=== PATIENT | female | born 1965 | race Hispanic/Latino ===

== ENCOUNTER 2018-03-22 12:18 | Outpatient (CLI) | payer OTHER ==
[~2018-03-22 12:18] MED LIST: Iopamidol 370 76% 100 ML VIAL ONE
--- NOTE | 2018-03-22 13:46 | CT ---
CT NECK SOFT TISSUES WITH CONTRAST: DATE: 03/22/2018. HISTORY: A 52-year-old female with left neck mass, R22.1. COMPARISON: None. FINDINGS: Corresponding to the externally placed marker for palpable lump, there is an approximately 2.3 x 1.8 x 2.2 cm non-necrotic, smoothly well-circumscribed, non-lobulated, homogeneously moderately enhancing soft tissue density mass, which indents the tail of the superficial lobe of the left parotid gland. This is either a tumor arising from the parotid tail or represents an enlarged level II lymph node. The former is favored. Inferior to that, there is enlargement of several left cervical lymph nodes. For example, immediatel y inferior to this mass, there is a similar-appearing soft tissue density mass measuring approximatel y 2 x 1.1 x 0.9 cm which abuts the lateral surface of the left sternocleidomastoid muscle. Inferior and medial to that, there is a vertical array of abnormally enlarged lymph nodes deep to the left sternocleidomastoid muscle, including 1.4 x 1 x 1.2 cm left level IIB or III node; 1.3 x 1 x 1. 2 cm left level IIIB lymph node; 2 x 1.4 x 1.7 cm left level IV supraclavicular lymph node; Medial t o that, a 1.5 x 1 x 0.9 cm supraclavicular left level IV lymph node. There are scattered minimally enlarged bilateral cervical lymph nodes at levels IA, 1B, II, III, IV, and V, which are nonspecific. Thyroid gland is normal in size. The left tympanomastoid cavity is grossly clear. There opacificati on of the contralateral right mastoid antrum and right mastoid air cells. Bilateral maxillary sinuse s are clear. No other mass in the parotid, parapharyngeal, practice nurse, pharyngeal mucosal, visceral, retropharyngeal, posterior cervical, carotid, and submandibular, spaces, other than the lymphadenopa thy. IMPRESSION: 1. A vertical array of enlarged left cervical pathologically enlarged lymph nodes highly suspicious for malignancy. 2. The most superior left neck mass could be a pathologically enlarged lymph node or may represent a solid primary neoplastic tumor arising from the tail of the superficial lobe of the left parotid gla nd. POS: CHARITY
== END 2018-03-22 12:19 | disposition home or self-care (01) ==
LOC: CT 12:18
PROVIDERS: ATTEND Otolaryngology Plastic Surgery within the Head & Neck
DX: R22.1 Localized swelling, mass and lump, neck (principal)
CPT/HCPCS: 70491

== ENCOUNTER 2018-04-04 10:48 | Day surgery (SDC) | payer OTHER ==
[2018-04-03 14:15] VITALS: BMI 31.8
[2018-04-04] MEDS ORDERED: PROPOFOL 200 MG/20 ML VIAL ONE (11:57)
[2018-04-04] MEDS ORDERED: Lidocaine 1% PF 5 ML VIAL ONE (11:57)
[2018-04-04] MEDS ORDERED: Rocuronium Bromide 10 MG/ML (10ML VIAL) ONE (11:57)
[2018-04-04] MEDS ORDERED: Ondansetron PF 4 MG/2 ML Vial ONE (11:57)
[2018-04-04] MEDS ORDERED: Glycopyrrolate 0.2 MG/ML 5 ML SYRINGE ONE (11:57)
[2018-04-04] MEDS ORDERED: Lidocaine 1% w/Epinephrine 1:100K 20 ML VIAL ONE (12:46)
[2018-04-04] MEDS ORDERED: Fentanyl 100 MCG/2 ML VIAL ONE ×2 (13:00)
[2018-04-04] MEDS ORDERED: Clindamycin/D5W 900 mg/50 ml Premix Bag ONE (13:40)
[2018-04-04] MEDS ORDERED: Bacitracin Zinc Ointment 30 gm TUBE ONE (14:24)
[2018-04-04] MEDS ORDERED: Hydrocodone-Acetamin 15 ML UDCUP ONE (18:04)
--- NOTE | 2018-04-05 10:04 | OP ---
DATE OF PROCEDURE: 04/04/2018 PREOPERATIVE DIAGNOSIS: Left parotid mass. POSTOPERATIVE DIAGNOSIS: Left parotid mass. PROCEDURE PERFORMED: Left superficial parotidectomy with intraoperative facial nerve monitoring. ESTIMATED BLOOD LOSS: 20 mL. COMPLICATIONS: None. ANESTHESIA: GETA. DESCRIPTION OF PROCEDURE: The patient was taken to the operating room, placed supine on the table. General endotracheal anesthesia was obtained by the Anesthesia Staff. Following this, the facial nerve monitor electrodes were placed within the orbicularis cheri and the orbicularis oculi muscles. The facial nerve monitor was then set up and remained on throughout the procedure with nurse . Following this, the patient was prepped and draped in standard surgical fashion. 8 mL of 1% lidocaine with 1:100,000 epinephrine was injected into the area overlying the anticipated skin flap. Following this, an incision was made in the preauricular crease extending 1 cm around the earlobe and then extending onto a lateral neck crease 2 cm below the angle of the mandible. Following this, the incision was carried with a 15 blade through skin, subcutaneous tissue. A fat up, fat down flap was then elevated exposing the parotid gland. The gland was then displaced from the sternocleidomastoid muscle inferiorly and dissection was carried down the tragal cartilage. The facial nerve was identified and was dissected laterally exposing the superior and inferior division. Dissecting the inferior division in the marginal mandibular nerve branch, the rubbery mass was encountered approximately 2.5 cm. It was just on the inferior edge of the marginal mandibular nerve. Protecting this nerve, this mass along with a 1 cm cuff of normal parotid tissue was removed and sent for pathological analysis. Following this, the wound was irrigated. A small drain was placed and secured and the flap was closed using 3-0 and 4-0 Monocryl. The skin was closed using 4-0 and 5-0 nylon stitches. The patient tolerated the procedure well. Job ID: [id number]
--- NOTE | 2018-04-06 08:55 | EKG ---
Test Reason : PREOP Blood Pressure : / mmHG Vent. Rate : 060 BPM Atrial Rate : 060 BPM P-R Int : 158 ms QRS Dur : 074 ms QT Int : 440 ms P-R-T Axes : 008 025 -05 degrees QTc Int : 440 ms Normal sinus rhythm Normal ECG No previous ECGs available Confirmed by DR. Tim SCHMITZ ([id number]) on 04/06/2018 8:55:11 AM Referred By: JOSEPH Confirmed By:DR. Tim SCHMITZ
== END 2018-04-04 18:55 | disposition home or self-care (01) ==
LOC: SDC 10:48
PROVIDERS: ATTEND Otolaryngology Plastic Surgery within the Head & Neck
PROC: 0CBC0ZZ Excision of Left Parotid Duct, Open Approach (ICD-10-PCS; principal; 2018-04-04)
DX: K11.8 Other diseases of salivary glands (principal); E78.00 Pure hypercholesterolemia, unspecified; Z79.899 Other long term (current) drug therapy; Z88.0 Allergy status to penicillin
CPT/HCPCS: 36415; 85014; 88184; 88307; 88341; 88342; 88360; 93005; 93010; J2001; J2405; J2704; J3010; J3490